=== PATIENT | male | born 1970 | race Caucasian/White ===

== ENCOUNTER → 2017-10-28 | Outpatient (CLI) | payer OTHER ==
[~2017-10-28] MED LIST: ASPI-496 PO; DULO60CA7 PO; ENAL10TA PO; GABA800T2 PO; MELO7.5T31 PO; MODA100T2 PO; OXYC-307 PO; OXYM40TA12 PO
== END | disposition home or self-care (01) ==
LOC: RAD 09:33
PROVIDERS: ATTEND Family Medicine
DX: N28.1 Cyst of kidney, acquired (principal)
CPT/HCPCS: 76700